=== PATIENT | female | born 1940 | race Caucasian/White ===

== ENCOUNTER 2021-12-05 20:05 | Inpatient (IN) ==
[2021-12-06] MEDS ORDERED: clonazePAM 1 MG TABLET PO PRN (21:00)
[2021-12-06] MEDS ORDERED: *HR* OxyCODONE Immed Rel 5 MG TABLET PO PRN (21:00)
[2021-12-06] MEDS ORDERED: Divalproex (24 HR) 250 MG TABLET PO SCH (21:00)
[2021-12-06] MEDS: tiZANidine 4 MG TABLET PO SCH (22:12)
[2021-12-07 04:59] LABS: Basophils % 0.5 %; Eosinophils # 0.2 K/mcL (0.0-0.6); Eosinophils % 3.3 %; Hematocrit 32.3 % (35.3-44.9); Hemoglobin 10.9 g/dL (11.5-15.4); Lymphocytes # 2.3 K/mcL (0.6-4.6); Lymphocytes % 30.7 %; Mean Corpuscular HGB Conc 33.7 g/dL (31.6-35.5); Mean Corpuscular Hemoglobin 28.2 pg (28.0-33.3); Mean Corpuscular Volume 83.5 fL (83.0-100.0); Mean Platelet Volume 10.5 fL (9.4-12.4); Monocytes # 0.9 K/mcL (0.0-1.3); Monocytes % 12.6 %; Neutrophils # 3.8 K/mcL (1.6-8.9); Platelet Count 184 K/mcL (140-400); Red Blood Count 3.87 M/mcL (3.82-4.97); Red Cell Distribution Width 13.9 % (11.5-14.5); Segmented Neutrophils % 51.9 %; White Blood Count 7.3 K/mcL (4.3-11.1)
[2021-12-07 05:11] LABS: Calcium 9.4 mg/dL (8.6-10.3); Potassium 4.5 mEq/L (3.5-5.1)
[2021-12-07] MEDS: *HR* Enoxaparin 40 MG/0.4 ML SYRINGE SQ SCH (06:04)
[2021-12-07] MEDS: Aspirin Enteric Coated 81 MG Tablet PO SCH (09:32)
[2021-12-07] MEDS: Multivit/Ca/Min/Fe/FA 1 TAB TABLET PO SCH (09:32)
[2021-12-07] MEDS: tiZANidine 4 MG TABLET PO SCH ×3 (09:33→19:54)
[2021-12-07] MEDS: amLODIPine 5 MG TABLET PO SCH (09:33)
[2021-12-07] MEDS: Cyanocobalamin (B-12) 1,000 MCG TABLET PO SCH (09:33)
[2021-12-07] MEDS: Cholecalciferol (D-3) 1,000 UNIT (25MCG) TABLET PO SCH (09:33)
[2021-12-07] MEDS: *HR* Glimepiride 2 MG TABLET PO SCH (09:33)
[2021-12-08] MEDS: *HR* Enoxaparin 40 MG/0.4 ML SYRINGE SQ SCH (05:11)
[2021-12-08] MEDS: *HR* Glimepiride 2 MG TABLET PO SCH (09:01)
[2021-12-08] MEDS: Multivit/Ca/Min/Fe/FA 1 TAB TABLET PO SCH (09:01)
[2021-12-08] MEDS: Aspirin Enteric Coated 81 MG Tablet PO SCH (09:01)
[2021-12-08] MEDS: tiZANidine 4 MG TABLET PO SCH ×3 (09:02→21:40)
[2021-12-08] MEDS: Acetaminophen 325 MG TABLET PO PRN ×2 (09:03→21:41)
[2021-12-08] MEDS: Cholecalciferol (D-3) 1,000 UNIT (25MCG) TABLET PO SCH (09:03)
[2021-12-08] MEDS: amLODIPine 5 MG TABLET PO SCH (09:03)
[2021-12-08] MEDS: Cyanocobalamin (B-12) 1,000 MCG TABLET PO SCH (09:36)
[2021-12-09] MEDS: *HR* Enoxaparin 40 MG/0.4 ML SYRINGE SQ SCH (05:07)
[2021-12-09] MEDS: Aspirin Enteric Coated 81 MG Tablet PO SCH (09:06)
[2021-12-09] MEDS: Cyanocobalamin (B-12) 1,000 MCG TABLET PO SCH (09:06)
[2021-12-09] MEDS: Multivit/Ca/Min/Fe/FA 1 TAB TABLET PO SCH (09:06)
[2021-12-09] MEDS: tiZANidine 4 MG TABLET PO SCH ×3 (09:06→21:19)
[2021-12-09] MEDS: *HR* Glimepiride 2 MG TABLET PO SCH (09:06)
[2021-12-09] MEDS: amLODIPine 5 MG TABLET PO SCH (09:07)
[2021-12-09] MEDS: Cholecalciferol (D-3) 1,000 UNIT (25MCG) TABLET PO SCH (09:07)
[2021-12-09 19:45] VITALS: TEMP 98.2
[2021-12-09] MEDS: Acetaminophen 325 MG TABLET PO PRN (21:18)
[2021-12-10 05:18] LABS: Basophils % 0.3 %; Eosinophils # 0.4 K/mcL (0.0-0.6); Eosinophils % 4.2 %; Hematocrit 32.7 % (35.3-44.9); Hemoglobin 11.2 g/dL (11.5-15.4); Immature Granulocytes % 0.4 % (0-4); Lymphocytes # 2.1 K/mcL (0.6-4.6); Lymphocytes % 23.2 %; Mean Corpuscular HGB Conc 34.3 g/dL (31.6-35.5); Mean Corpuscular Hemoglobin 28.1 pg (28.0-33.3); Mean Corpuscular Volume 82.2 fL (83.0-100.0); Mean Platelet Volume 10.3 fL (9.4-12.4); Monocytes % 11.2 %; Neutrophils # 5.6 K/mcL (1.6-8.9); Platelet Count 184 K/mcL (140-400); Red Blood Count 3.98 M/mcL (3.82-4.97); Segmented Neutrophils % 60.7 %; White Blood Count 9.2 K/mcL (4.3-11.1)
[2021-12-10 05:34] LABS: Albumin 3.8 g/dL (3.5-5.7); Albumin/Globulin Ratio 1.4 (1.1-2.2); Bilirubin,Total 0.4 mg/dL (0.3-1.0); Calcium 9.1 mg/dL (8.6-10.3); Globulin 2.7 g/dL (2.4-3.5); Magnesium 1.6 mg/dL (1.6-2.6); Potassium 3.9 mEq/L (3.5-5.1); Total Protein 6.5 g/dL (6.4-8.9)
[2021-12-10] MEDS: *HR* Enoxaparin 40 MG/0.4 ML SYRINGE SQ SCH (06:19)
[2021-12-10 07:14] VITALS: BP 144/81; PULSE 58; RESP 16; O2SAT 95
[2021-12-10] MEDS: Multivit/Ca/Min/Fe/FA 1 TAB TABLET PO SCH (09:26)
[2021-12-10] MEDS: Acetaminophen 325 MG TABLET PO PRN (09:27)
[2021-12-10] MEDS: Cholecalciferol (D-3) 1,000 UNIT (25MCG) TABLET PO SCH (09:27)
[2021-12-10] MEDS: Aspirin Enteric Coated 81 MG Tablet PO SCH (09:27)
[2021-12-10] MEDS: amLODIPine 5 MG TABLET PO SCH (09:27)
[2021-12-10] MEDS: Cyanocobalamin (B-12) 1,000 MCG TABLET PO SCH (09:28)
[2021-12-10] MEDS: tiZANidine 4 MG TABLET PO SCH (09:29)
[2021-12-10] MEDS: *HR* Glimepiride 2 MG TABLET PO SCH (12:18)
== END 2021-12-10 13:04 | disposition home health service (06) | DRG 57 ==
LOC: INPGRE 12-06 19:38
PROVIDERS: ADMIT Family Medicine; ATTEND Family Medicine